=== PATIENT | female | born 1940 | race Two or more races ===

== ENCOUNTER 2017-11-19 01:24 | Emergency (ER) | payer MEDICARE, BC, OTHER ==
[2017-11-19 03:20] LABS: URINE BLOOD (Dip) POC Negative (NEGATIVE); URINE KETONES (Dip) POC Negative (NEGATIVE); URINE LEUKOCYTE EST (Dip) POC Negative (NEGATIVE); URINE NITRITE (Dip) POC Negative (NEGATIVE); URINE TOTAL PROTEIN POC Negative (NEGATIVE)
[2017-11-19 04:20] LABS: ADD MAN DIFF? NO
[2017-11-19 04:30] LABS: WHITE BLOOD COUNT 11.6 10^3/ul (4.8-10.8)
[2017-11-19 04:30] LABS: BASOPHIL # 0.1 10^3/ul (0.0-0.1); BASOPHILS % 0.4 % (0.0-2.0); EOSINOPHILS # 0.1 10^3/ul (0.0-0.5); EOSINOPHILS % 1.2 % (0.0-7.0); HEMATOCRIT 31.9 % (37.0-47.0); HEMOGLOBIN 10.7 g/dl (12.0-16.0); LYMPHOCYTES # 2.8 10^3/ul (0.8-2.9); LYMPHOCYTES % 23.7 % (15.0-51.0); MEAN CORPUSCULAR HEMOGLOBIN 27.6 pg (29.0-33.0); MEAN CORPUSCULAR HGB CONC 33.5 g/dl (32.0-37.0); MEAN CORPUSCULAR VOLUME 82.2 fl (82.0-101.0); MEAN PLATELET VOLUME 11.4 fl (7.4-10.4); MONOCYTE # 0.7 10^3/ul (0.3-0.9); NEUTROPHIL # 7.9 10^3/ul (1.6-7.5); NEUTROPHILS % 68.4 % (39.0-77.0); PLATELET COUNT 335 10^3/UL (140-415); RED BLOOD COUNT 3.88 10^6/ul (4.20-5.40); RED CELL DISTRIBUTION WIDTH 14.2 % (11.5-14.5)
[2017-11-19 04:44] LABS: ALANINE AMINOTRANSFERASE 24 IU/L (13-69); ALBUMIN 3.9 g/dl (3.3-4.9); ALBUMIN/GLOBULIN RATIO 1.02; ALKALINE PHOSPHATASE 107 IU/L (42-121); ANION GAP 14 (8-16); ASPARTATE AMINO TRANSFERASE 15 IU/L (15-46); BILIRUBIN,INDIRECT 0.3 mg/dl (0-1.1); BILIRUBIN,TOTAL 0.3 mg/dl (0.2-1.3); BLOOD UREA NITROGEN 23 mg/dl (7-20); CALCIUM 9.6 mg/dl (8.4-10.2); CARBON DIOXIDE 31 mmol/L (21-31); CHLORIDE 100 mmol/L (97-110); GLUCOSE 270 mg/dl (70-220); POTASSIUM 4.2 mmol/L (3.5-5.1); SODIUM 141 mmol/L (135-144); TOTAL PROTEIN 7.7 g/dl (6.1-8.1)
[2017-11-19] MEDS: SOD CHLORIDE 0.9% 1,000 ML IV (05:20)
[2017-11-19] MEDS: INSULIN LISPRO 100 UNIT/ML VIAL SC (05:20)
== END 2017-11-19 06:43 | disposition home or self-care (01) ==
LOC: E/R 01:24
DX: E11.65 Type 2 diabetes mellitus with hyperglycemia (principal); I10 Essential (primary) hypertension; Z79.4 Long term (current) use of insulin
CPT/HCPCS: 80053; 81003; 82962; 85025; 93005; 96372; 99284-25